=== PATIENT | male | born 1975 | race Caucasian/White ===

== ENCOUNTER 2017-05-20 10:34 | Emergency (ER) | END 2017-05-20 12:05 | disposition left against medical advice (07) | LOC: UCCORT 10:34 | DX: M25.551 Pain in right hip (principal); Z53.21 Procedure and treatment not carried out due to patient leaving prior to being seen by health care provider ==

== ENCOUNTER 2017-05-21 15:02 | Emergency (ER) | payer SELFPAY ==
[2017-05-21 15:52] VITALS: BP 126/82
--- NOTE | 2017-05-21 16:32 | UC ---
Hip/Pelvis Pain - HPI Summary HPI Summary: 41 male presents to with complaints of right hip pain that began Saturday morning. States he woke up with it. States walking and bearing weight makes the pain worse. Has not taken any medication, as tried icey hot with some relief. States the pain is in his hip with some radiation into right low back. Does not radiate into his leg. Denies any swelling, bruising or external symptoms. Admits to sometimes feeling spasms. No numbness/tingling. No PMHx. No urinary or abdominal symptoms. NO known trauma or injury that he can remember. No fever/ chills. Is able to bear weight. - History Of Current Complaint Chief Complaint: UCLowerExtremity Stated Complaint: RIGHT HIP PAIN Time Seen by Provider: 05/21/17 16:05 Hx Obtained From: Patient Onset/Duration: Sudden Onset, Lasting Days, Still Present, Worse Since Severity Initially: Moderate Severity Currently: Severe Pain Intensity: 10 Pain Scale Used: 0-10 Numeric Location: Discrete At: - right hip/glute Character Of Pain: Sharp, Aching, Spasmodic Aggravating Factor(s): Movement, Weight Bearing Alleviating Factor(s): Rest, OTC Medications - icey/hot Associated Signs And Symptoms: Positive: Negative - Allergies/Home Medications Allergies/Adverse Reactions: Allergies Allergy/AdvReac Type Severity Reaction Status Date / Time No Known Allergies Allergy Verified 05/21/17 15:52 PMH/Surg Hx/FS Hx/Imm Hx - Additional Past Medical History Additional PMH: Denies DM, HTN and PMHx. No blood thinners - Surgical History Surgical History: None - Family History Known Family History: Positive: None - Social History Alcohol Use: Occasionally Substance Use Type: None Smoking Status (MU): Light Every Day Tobacco Smoker Review of Systems Constitutional: Negative Respiratory: Negative Cardiovascular: Negative Musculoskeletal: Arthralgia - right hip, Myalgia Neurological: Negative All Other Systems Reviewed And Are Negative: Yes Physical Exam Triage Information Reviewed: Yes Appearance: Well-Appearing, Well-Nourished, Pain Distress - moderate Vital Signs: Initial Vital Signs Temp 98.2 F 05/21/17 15:48 Pulse 74 05/21/17 15:48 Resp 18 05/21/17 15:48 BP 126/82 05/21/17 15:48 Pulse Ox 100 05/21/17 15:48 Vital Signs Reviewed: Yes Neck: Positive: Supple Respiratory: Positive: Chest non-tender, Lungs clear, Normal breath sounds, No respiratory distress, No accessory muscle use Cardiovascular: Positive: RRR, No Murmur, Pulses Normal - 2+ pedal bl Musculoskeletal: Positive: Strength Intact, ROM Intact, No Edema, Other: - no crepitus, edema, ecchymosis or obvious signs of trauma Neurological Exam: Normal Neurological: Positive: Alert Skin Exam: Normal Hip Injury Course/Dx - Course Course Of Treatment: given toradol and flexeril while in UC. continue NSAIDs and muscle relaxer, rest and heat at home. Aware of worsening signs and symptoms to watch out for. return if symptoms do not improve. appears to be MSK as no other red flags suggesting other etiology. Follow up with PCP. - Differential Dx/Diagnosis Differential Diagnosis/HQI/PQRI: Arthritis, Sprain, Strain Provider Diagnoses: right hip pain, low back strain Discharge - Discharge Plan Condition: Good Disposition: HOME Prescriptions: Cyclobenzaprine TAB* [Flexeril 10 MG TAB*] 10 mg PO BEDTIME PRN #12 tab PRN Reason: Spasms Naproxen TAB* [Naprosyn 375 mg TAB*] 375 mg PO Q8H PRN #30 tab PRN Reason: Pain Patient Education Materials: Low Back Strain (ED), Hip Pain (ED) Forms: *Work Release Referrals: No Primary Care Phys,NOPCP [Primary Care Provider] - [facility] [place] Physical therapy,PT [Medical Doctor] - Additional Instructions: Take prescribed medication as needed to help with pain and inflammation for the next coupe of days. Do not take the naproxen until tomorrow morning, take with food. Muscle relaxer at bedtime or twice a day, will make you drowsy, you may take this dose again tonight before bed if desired. Apply heat. Rest. Any new or worsening symptoms please seek medical attention promptly, as discussed. Follow up with PCP within 1 week to ensure improvement.
[2017-05-21] MEDS ORDERED: Ketorolac INJ* 60 MG/2 ML VIAL IM ONE (16:47)
[2017-05-21] MEDS ORDERED: Cyclobenzaprine TAB* 10 MG PO ONE (16:47)
== END 2017-05-21 17:23 | disposition home or self-care (01) ==
LOC: UCCORT 15:02
DX: M25.551 Pain in right hip (principal); S39.012A Strain of muscle, fascia and tendon of lower back, initial encounter; X58.XXXA Exposure to other specified factors, initial encounter; Y92.9 Unspecified place or not applicable
CPT/HCPCS: 96372; 99212; A9270-GY; G0463; J1885